=== PATIENT | male | born 1955 | race Caucasian/White ===

== ENCOUNTER 2018-11-05 10:47 | Day surgery (SDC) | payer OTHER ==
[~2018-11-05] VITALS: Ht 188 cm; Wt 87.3 kg
[~2018-11-05 10:47] MED LIST: ASPI81CH PO; ASPI81EC PO; ATOR40TA PO; Cialis5 MG PO; FLUT.05NI; Flomax0.4 MG PO; Flovent Diskus50 MCG INH; GABA300 PO; GABA600 PO; Glucophage1000 MG PO; IBUP800; LISI20; LISI20 PO; LISI5; LISI5 PO; LO-DOSE ASPIRIN81 MG PO; METF500; METF500 PO; NAPR220 PO; NAPR500 PO; NAPR550 PO; OMEPRAZOLE MAGN20 MG PO; OXYACE5T PO; Omeprazole20 M1 PO; TAMS.4ER PO; TRAM50 PO
--- NOTE | 2018-11-05 12:03 | NUR ---
11/05/18 1203 Melly Barnhart 1202- DR BERNABE PRESENTED TO THE MAY-OP AREA TO INJECT L WRIST WITH MARCAINE 0.5% MARCAINE WITH EPI 1:200,000 5CC AND LIDOCAINE 2% WITH EPI 1;100,000 5CC. PT WAS GIVEN VERSED 1MG PRIOR TO INJECTION. HE TOLERATED PROCEDURE WELL AND O2 SATURATION REMAINED STABLE.
--- NOTE | 2018-11-05 13:36 | NUR ---
11/05/18 6136 Tamara Bauer PT DENIES PAIN AND NAUSEA WHILE IN STEP DOWN. PT HAS TOLERATED PO FLUIDS AND SNACKS WELL. RN WENT OVER DISCHARGE INSTRUCTIONS WITH PT AND PT'S UNTIL ALL QUESTIONS WERE ANSWERED. PT IS NOW DRESSING WITH HELP FROM HIS . WRITTEN INSTRUCTIONS PROVIDED FOR HOME.
[2018-12-10] MEDS ORDERED: HORIZANT600 MG PO (14:00)
[2018-12-10] MEDS ORDERED: TRAM50 PO (14:01)
== END 2018-11-05 13:42 | disposition home or self-care (01) ==
LOC: ORSCSDS 10:47
PROVIDERS: Orthopaedic Surgery
PROC: 0LN80ZZ Release Left Hand Tendon, Open Approach (ICD-10-PCS; principal; 2018-11-05 12:45)
PROC: 01N54ZZ Release Median Nerve, Percutaneous Endoscopic Approach (ICD-10-PCS; principal; 2018-11-05 12:45)
DX: G56.02 Carpal tunnel syndrome, left upper limb (principal); M65.30 Trigger finger, unspecified finger; I10 Essential (primary) hypertension; J45.909 Unspecified asthma, uncomplicated; E11.9 Type 2 diabetes mellitus without complications; Z79.899 Other long term (current) drug therapy; Z79.82 Long term (current) use of aspirin
CPT/HCPCS: 82947; J0690; J2250; J3010; J7120

== ENCOUNTER 2018-12-17 12:03 | Day surgery (SDC) | payer OTHER ==
[~2018-12-17] VITALS: Ht 190.5 cm; Wt 87.5 kg
[~2018-12-17 12:03] MED LIST changes: +HORIZANT600 MG PO
== END 2018-12-17 14:35 | disposition home or self-care (01) ==
LOC: ORSCSDS 12:03
PROVIDERS: Orthopaedic Surgery
PROC: 01N54ZZ Release Median Nerve, Percutaneous Endoscopic Approach (ICD-10-PCS; principal; 2018-12-17 13:15)
DX: G56.01 Carpal tunnel syndrome, right upper limb (principal); E11.9 Type 2 diabetes mellitus without complications; I10 Essential (primary) hypertension; Z79.899 Other long term (current) drug therapy
CPT/HCPCS: 82947; J0690; J2250; J2704; J3010; J7120

== ENCOUNTER 2021-08-16 16:43 | Emergency (ER) | payer MEDICARE, OTHER ==
[~2021-08-16] VITALS: Ht 182.9 cm; Wt 80.7 kg
[2021-08-16 17:17] LABS: BASOPHILS ABSOLUTE AUTO 0.06 K/mm3 (0.00-0.23); BASOPHILS PERCENT AUTO 0 % (0-2); EOSINOPHILS ABSOLUTE AUTO 0.13 K/mm3 (0.00-0.68); EOSINOPHILS PERCENT AUTO 1 % (0-6); Hematocrit 48.5 % (37.0-53.0); Hemoglobin 16.1 g/dL (13.5-17.5); IMMATURE GRAN ABSOLUTE AUTO 0.06 K/mm3 (0.00-0.10); IMMATURE GRAN PERCENT AUTO 0 % (0-1); LYMPHOCYTES ABSOLUTE AUTO 2.11 K/mm3 (0.84-5.20); LYMPHOCYTES PERCENT AUTO 13 % (21-46); MONOCYTES ABSOLUTE AUTO 1.28 K/mm3 (0.16-1.47); MONOCYTES PERCENT AUTO 8 % (4-13); Mean Corpuscular HGB 29.5 pg (26.0-34.0); Mean Corpuscular HGB Conc 33.2 g/dL (31.5-36.5); Mean Corpuscular Volume 89 fL (80-100); Mean Platelet Volume 9.4 fL (9.1-12.4); NEUTROPHILS ABSOLUTE AUTO 12.73 K/mm3 (1.96-9.15); NEUTROPHILS PERCENT AUTO 78 % (41-73); Platelet Count 219 K/mm3 (150-400); RDW Coefficient Variation 14.2 % (11.7-14.2); RDW Standard Deviation 46.3 fL (35.1-46.3); Red Blood Cell Count 5.46 M/mm3 (4.30-5.90); White Blood Cell Count 16.37 K/mm3 (4.00-11.30)
[2021-08-16 17:42] LABS: Alanine Aminotransfer (ALT/SGP 28 U/L (12-78); Albumin, Blood 3.9 g/dL (3.4-5.0); Albumin/Globulin Ratio 1.3 (0.8-1.8); Alk Phos 61 U/L (50-136); Anion Gap 6 mmol/L (6-16); Aspartate Aminotrans (AST/SGOT 22 U/L (12-37); Bilirubin, Total 0.8 mg/dL (0.1-1.0); Blood Urea Nitrogen 25 mg/dL (8-24); Bun/Creatinine Ratio 24.8 (12.0-20.0); CO2, Blood 24 mmol/L (21-32); Calcium, Blood 9.3 mg/dL (8.5-10.1); Chloride, Blood 109 mmol/L (98-108); Creatinine, Blood 1.01 mg/dL (0.60-1.20); Globulin, Blood 2.9 g/dL (2.2-4.0); Glomerular Filtration Rate >60 (60-); Glucose, Blood 128 mg/dL (70-99); Potassium, Blood 4.3 mmol/L (3.5-5.5); Sodium, Blood 139 mmol/L (136-145); Total Protein, Blood 6.8 g/dL (6.4-8.2)
[2021-08-16] MEDS ORDERED: ACET500 PO (19:02)
[2021-08-16] MEDS ORDERED: Flonase 0.05% N16 GM (19:02)
[2021-08-16 19:33] LABS: Source, Urine Clean Catch
[2021-08-16 19:35] LABS: Appearance, Urine Clear (Clear); Bilirubin, Urine Neg (Neg); Blood, Urine Neg (Neg); Color, Urine Yellow (P-Yellow); Glucose Qualitative, Urine Neg (Neg); Ketones, Urine 3+ (Neg); Leukocyte Esterase, Urine Neg (Neg); Nitrite, Urine Neg (Neg); Protein, Urine 1+ (Neg); Urobilinogen, Urine NORM (Normal)
== END 2021-08-16 21:32 | disposition home or self-care (01) ==
LOC: ER 16:43
PROVIDERS: Physician Assistant
DX: R55 Syncope and collapse (principal); Z79.899 Other long term (current) drug therapy
CPT/HCPCS: 71045; 80053; 83690; 84484; 85025; 93005; 93010; 99284-25

== ENCOUNTER → 2024-11-30 | Outpatient (CLI) | payer MEDICARE, OTHER ==
[~2024-11-30] MED LIST changes: +ACET500 PO; +ASPI81CH; +FINA5 PO; +Flonase 0.05% N16 GM; +GABAPENTIN600 MG PO; +METFORMIN HCL500 M2 PO; +Prinivil10 MG PO; +ROSUVASTATIN CA20 MG PO; +TAMSULOSIN HCL0.4 M1 PO
[2024-11-30 19:36] LABS: Creatinine, Urine Random 68.5 mg/dL (27.00-270.00)
[2024-11-30 19:39] LABS: Microalb/Creat Ratio UR, Rand 16.642 mg/g (0.000-30.000); Microalbumin, Random Urine 11.4 mg/L (0.000-20.000)
== END ==
LOC: LAB 15:37 → LAB SHORT 15:37
PROVIDERS: Internal Medicine
DX: E11.42 Type 2 diabetes mellitus with diabetic polyneuropathy (principal)
CPT/HCPCS: 82043; 82570

== ENCOUNTER → 2024-12-22 | Outpatient (CLI) | payer MEDICARE, OTHER ==
[2024-12-22 14:17] LABS: Creatinine, Urine Random 30.7 mg/dL (27.00-270.00); Microalb/Creat Ratio UR, Rand 95.114 mg/g (0.000-30.000); Microalbumin, Random Urine 29.2 mg/L (0.000-20.000)
== END | disposition home or self-care (01) ==
LOC: LAB 11:49 → LAB SHORT 11:49 → LAB FUT 11-30 16:20
PROVIDERS: Internal Medicine
DX: E11.42 Type 2 diabetes mellitus with diabetic polyneuropathy (principal)
CPT/HCPCS: 82043; 82570